=== PATIENT | male | born 1930 | race African-American/Black ===

== ENCOUNTER 2016-11-08 02:44 | Inpatient (IN) | payer MEDICARE, OTHER ==
[2016-11-08] VITALS (45 sets, daily range): BP systolic 55–225; BP diastolic 11–73
[~2016-11-08] VITALS: Ht 182.9 cm; Wt 44.5 kg
[~2016-11-08 02:44] MED LIST: CEFTIN500 MG ORAL; ENALAPRIL MALEA20 MG ORAL; LEVITRA10 MG ORAL; METFORMIN HCL500 M1 ORAL; NAPROXEN500 M2 ORAL; NIFEDIPINE ER60 M2 ORAL; TAMSULOSIN HCL0.4 MG ORAL; TRIAMTERENE-HC1 EAC7 ORAL; UNOBMED; VESICARE5 MG ORAL
[2016-11-08 03:22] LABS: KETONES,URINE NEGATIVE (NEGATIVE); LEUKOCYTE ESTERASE ,URINE 3+ (NEGATIVE); MEAN CORPUSCULAR HEMOGLOBIN 25.7 PG (27.0-31.0); MEAN CORPUSCULAR HGB CONC 29.5 G/DL (32.0-36.0); MEAN CORPUSCULAR VOLUME 87 FL (80-99); MEAN PLATELET VOLUME 9.2 FL (6.5-10.1); NITRITE,URINE NEGATIVE (NEGATIVE); PH,URINE 5 (4.5-8.0); PLATELET COUNT 80 K/UL (150-450); PROTEIN,URINE 2+ (NEGATIVE); RED BLOOD COUNT 3.38 M/UL (4.70-6.10); RED CELL DISTRIBUTION WIDTH 19.6 % (11.6-14.8); UROBILINOGEN,URINE NORMAL MG/DL (0.0-1.0)
[2016-11-08 03:33] LABS: APPEARANCE,URINE CLOUDY; RBC,URINE 20-30 /HPF (0 - 0); WBC,URINE TNTC /HPF (0 - 0)
[2016-11-08 03:34] LABS: BACTERIA,URINE MANY /HPF
[2016-11-08 03:40] LABS: ALANINE AMINOTRANSFERASE 29 U/L (3-41); ALBUMIN/GLOBULIN RATIO 0.6 (1.0-2.7); ANION GAP 39 (5-15); ASPARTATE AMINO TRANSFERASE 39 U/L (5-40); CALCIUM 8.2 mg/dL (8.6-10.2); CHLORIDE 87 mEQ/L (98-107); CREATININE 6.1 mg/dL (0.7-1.2); HEMOLYSIS 11; SODIUM 134 mEQ/L (135-145); TOTAL PROTEIN 5.7 g/dL (6.6-8.7)
[2016-11-08 03:43] LABS: TROPONIN I < 0.30 ng/mL (<=0.30)
[2016-11-08 03:47] LABS: CARBON DIOXIDE 8 mEQ/L (20-30); POTASSIUM 6.9 mEQ/L (3.4-4.9)
[2016-11-08 03:51] LABS: CKMB 9.6 ng/mL (< 6.7)
[2016-11-08 03:57] LABS: REFLEX LACTIC ACID YES OR NO YES
[2016-11-08 04:15] LABS: ABG ALLEN TEST POSITIVE; ABG BASE EXCESS -28.9; ABG PCO2 47.8 mmHg (35.0-45.0)
[2016-11-08 04:24] LABS: BAND NEUTROPHILS % (MANUAL) 7 % (0-8); BASOPHILS % (MANUAL) 0 % (0-2); EOSINOPHILS % (MANUAL) 0 % (0-3); LYMPHOCYTES % (MANUAL) 11 % (20-45); NEUTROPHILS % (MANUAL) 75 % (45-75); PLATELET ESTIMATE DECREASED; PLATELET MORPHOLOGY NORMAL; TOTAL CELLS COUNTED 100
[2016-11-08] MEDS ORDERED: Azithromycin 250mg tab ORAL ONE (04:30)
[2016-11-08] MEDS ORDERED: Calcium Gluconate 1gm/10ml vial IVP ONE ×2 (04:30→10:45)
[2016-11-08] MEDS ORDERED: Piperacillin/Tazobactam 3.375 GM in NS 110 ML IVPB ONE (04:30)
[2016-11-08] MEDS ORDERED: Zosyn 3.375gm inj ONE (04:48)
[2016-11-08] MEDS ORDERED: Azithromycin 500 MG in NS 275 ML IV ONE (05:15)
[2016-11-08] MEDS ORDERED: Azithromycin 500mg Inj IV ONE (05:17)
--- NOTE | 2016-11-08 05:40 | Emergency Room Report ---
History of Present Illness General Chief Complaint: Dyspnea/Respdistress Source: Medical Record Present Illness HPI 86-year-old male presents ED respiratory distress. Patient is coming from shelter with symptoms started approximately one hour prior to arrival. Patient is hypoxic, altered. Crackles on exam. Per EMS Accu-Chek is critically low. Patient on BiPAP upon arrival. Patient is unable to provide any history at this time. Accu-Chek upon arrival is also critically low. No other aggravating relieving factors. No other associated symptoms Allergies: Coded Allergies: No Known Allergies (Unverified , 07/26/13) Patient History Past Medical History: DM, HTN Past Surgical History: none Pertinent Family History: none Social History: Denies: smoking, alcohol use, drug use Immunizations: UTD Reviewed Nursing Documentation: PMH: Agreed, PSxH: Agreed Nursing Documentation-PMH Hx Cardiac Problems: Yes Hx Hypertension: Yes Hx Diabetes: Yes Hx Cancer: No Hx Gastrointestinal Problems: Yes Hx Neurological Problems: No Review of Systems All Other Systems: limited Physical Exam Vital Signs Date Time Temp Pulse Resp B/P (MAP) Pulse Ox O2 Delivery O2 Flow Rate FiO2 11/08/16 02:45 107 26 Bi-pap 11/08/16 02:45 97.0 90/47 80 11/08/16 02:48 100 Sp02 EP Interpretation: reviewed, abnormal General Appearance: lethargic, thin Head: normocephalic Eyes: bilateral eye normal inspection, bilateral eye PERRL ENT: normal ENT inspection Neck: normal inspection Respiratory: accessory muscle use, crackles Cardiovascular #1: tachycardia Gastrointestinal: normal inspection Rectal: deferred Genitourinary: no CVA tenderness Musculoskeletal: normal inspection Neurologic: other - lethargic Psychiatric: other - lethargic Skin: normal inspection Lymphatic: normal inspection Procedures Critical Care Time Critical Care Time i. I feel this is a highly complex case requiring extensive working including EKG/Rhythm strip, Xray/CT/US, Blood/urine lab work, repeat exams while in ED, and administration of strong opiates/narcotics for pain control, admission to hospital or close patient follow up. Total time: 30 min bedside evaluation and treatment excludes procedures (EKG). Reason for critical care: hypoxic, respiratory distress, hypoglycemic Possible complications: hypotension, hypertension, IA, shock, arrhythmias, metabolic acidosis, end organ damage, respiratory failure. Interventions: IVFs, labs, EKG, CXR, D50, intubation, central line, calcium/ insulin/D50, antibiotics Course: Patient brought in respiratory distress. Patient hypoxic on BiPAP. Accu-Chek critically low. Difficulty establishing IV access. Patient given D50. ABG shows pH of 6.8. Patient intubated. Chest x-ray confirms ET tube placement. Central line placed. Labs showed significant leukocytosis, lactic acid greater than 17, pH 6.9. Patient given antibiotics. Given IV fluids. Treated for hyperkalemia. Consultations: nursing staff, EMS, family Performed by: Dr Marroquin Tolerated well condition = critical j. because of unstable vital signs this patient had a condition that could potentially threaten life or limb. I feel this is a critical patient who required my full attention while patient was considered critical. Total Critical Care Time excluding procedures was greater than 35 minutes Central Line Central Line : Consent: Emergent Central Line Lumen: triple Maximal Sterile Barrier Tech: yes cap, yes mask, yes sterile gown, yes sterile gloves, yes large sterile sheet, yes hand hygiene, yes chlorhexidine prep Central Line Postion: femoral (R) Anesthesia: local Complications: none Central Line Post Position: sutured, good blood return Attempts: One Patient Tolerated: Well Complications: None Medical Decision Making Diagnostic Impression: Primary Impression: Respiratory distress Additional Impressions: Septic shock Hyperkalemia ARF (acute renal failure) Qualified Codes: N17.9 - Acute kidney failure, unspecified Metabolic acidosis UTI (lower urinary tract infection) ER Course Hospital Course 86-year-old M presenting to ED with respiratory distress, hypoxic, altered Differential diagnoses include: Pneumonia, CHF exacerbation, pneumothorax, fluid overload Clinical course Patient placed on stretcher. 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 Patient started on BiPAP. Accu-Chek critically low. IV access was established and D50 was given After initial history and physical, I ordered labs, IV fluids, EKG, chest x-ray , blood cultures, UA. ABG shows pH of 6.8 with significant metabolic acidosis. Patient intubated Labs - significant leukocytosis, BUN/creatinine markedly elevated, potassium 6.9 , likely gastric greater than 17, BNP elevated. UA grossly positive CXR - L lung consolidation/infiltrate, intubated EKG - sinus tachycardia, no acute ischemic changes Patient given calcium, insulin/D50. Given 30 mL per KG fluid bolus. Given antibiotics. Patient is a [facility] patient however is critical and unstable for transfer Case discussed with Dr. Pittman and he agreed to the patient to his service for further care and support I feel this is a highly complex case requiring extensive working including EKG/ Rhythm strip, Xray/CT/US, Blood/urine lab work, repeat exams while in ED, and administration of strong opiates/narcotics for pain control, admission to hospital or close patient follow up. Diagnosis - respiratory distress, second shock, hyperkalemia, ARF, metabolic acidosis, UTI Patient admitted to ICU in critical condition Labs Test 11/08/16 03:15 11/08/16 04:10 11/08/16 04:30 White Blood Count 22.0 K/UL (4.8-10.8) Red Blood Count 3.38 M/UL (4.70-6.10) Hemoglobin 8.7 G/DL (14.2-18.0) Hematocrit 29.5 % (42.0-52.0) Mean Corpuscular Volume 87 FL (80-99) Mean Corpuscular Hemoglobin 25.7 PG (27.0-31.0) Mean Corpuscular Hemoglobin Concent 29.5 G/DL (32.0-36.0) Red Cell Distribution Width 19.6 % (11.6-14.8) Platelet Count 80 K/UL (150-450) Mean Platelet Volume 9.2 FL (6.5-10.1) Neutrophils (%) (Auto) % (45.0-75.0) Lymphocytes (%) (Auto) % (20.0-45.0) Monocytes (%) (Auto) % (1.0-10.0) Eosinophils (%) (Auto) % (0.0-3.0) Basophils (%) (Auto) % (0.0-2.0) Differential Total Cells Counted 100 Neutrophils % (Manual) 75 % (45-75) Lymphocytes % (Manual) 11 % (20-45) Monocytes % (Manual) 7 % (1-10) Eosinophils % (Manual) 0 % (0-3) Basophils % (Manual) 0 % (0-2) Band Neutrophils 7 % (0-8) Platelet Estimate Decreased Platelet Morphology Normal Red Blood Cell Morphology Normal Urine Color Pale yellow Urine Appearance Cloudy Urine pH 5 (4.5-8.0) Urine Specific [employer] 1.010 (1.005-1.035) Urine Protein 2+ (NEGATIVE) Urine Glucose (UA) Negative (NEGATIVE) Urine Ketones Negative (NEGATIVE) Urine Occult Blood 5+ (NEGATIVE) Urine Nitrite Negative (NEGATIVE) Urine Bilirubin Negative (NEGATIVE) Urine Urobilinogen Normal MG/DL (0.0-1.0) Urine Leukocyte Esterase 3+ (NEGATIVE) Urine RBC 20-30 /HPF (0 - 0) Urine WBC Tntc /HPF (0 - 0) Urine Squamous Epithelial Cells None /LPF (NONE/OCC) Urine Bacteria Many /HPF (NONE) Sodium Level 134 mEQ/L (135-145) Potassium Level 6.9 mEQ/L (3.4-4.9) Chloride Level 87 mEQ/L (98-107) Carbon Dioxide Level 8 mEQ/L (20-30) Anion Gap 39 (5-15) Blood Urea Nitrogen 79 mg/dL (7-23) Creatinine 6.1 mg/dL (0.7-1.2) Estimat Glomerular Filtration Rate mL/min (>60) Glucose Level 910 mg/dL (74-106) Lactic Acid Level 17.30 mmol/L (0.66-2.22) 17.80 mmol/L (0.66-2.22) Calcium Level 8.2 mg/dL (8.6-10.2) Total Bilirubin 0.6 mg/dL (0.0-1.2) Aspartate Amino Transf (AST/SGOT) 39 U/L (5-40) Alanine Aminotransferase (ALT/SGPT) 29 U/L (3-41) Alkaline Phosphatase 121 U/L (40-129) Total Creatine Kinase 420 U/L (38-174) Creatine Kinase MB 9.6 ng/mL (< 6.7) Creatine Kinase MB Relative Index 2.2 Troponin I < 0.30 ng/mL (<=0.30) Pro-B-Type Natriuretic Peptide 08952 pg/mL (0-450) Total Protein 5.7 g/dL (6.6-8.7) Albumin 2.2 g/dL (3.5-5.2) Globulin 3.5 g/dL Albumin/Globulin Ratio 0.6 (1.0-2.7) Arterial Blood pH 6.721 (7.350-7.450) Arterial Blood Partial Pressure CO2 47.8 mmHg (35.0-45.0) Arterial Blood Partial Pressure O2 100.3 mmHg (75.0-100.0) Arterial Blood HCO3 6.1 mmol/L (22.0-26.0) Arterial Blood Oxygen Saturation 87.9 % (92.0-98.0) Arterial Blood Base Excess -28.9 Simone Test Positive EKG Diagnostic Results Rate: tachycardiac Rhythm: NSR ST Segments: no acute changes ASA given to the pt in ED: No Rhythm Strip Diag. Results EP Interpretation: yes Rhythm: NSR, no PVC's, no ectopy Chest X-Ray Diagnostic Results Chest X-Ray Diagnostic Results : Chest X-Ray Ordered: Yes # of Views/Limited/Complete: 1 View Indication: Shortness of Breath EP Interpretation: Yes Interpretation: no effusion, no pneumothorax, no acute cardiopulmonary disease, other - intubated. L lung consolidation Impression: Other - pneumonia, intubated Last Vital Signs Date Time Temp Pulse Resp B/P (MAP) Pulse Ox O2 Delivery O2 Flow Rate FiO2 11/08/16 05:29 78 16 80 11/08/16 02:48 99 Facial 11/08/16 02:45 97.0 90/47 Status: improved Disposition: ADMITTED INPATIENT Condition: Critical Referrals: [facility] (PCP) WANG MARROQUIN M.D. Nov 08, 2016 05:40
[2016-11-08] MEDS ORDERED: DOCUSATE SODIU250 MG ORAL (06:19)
[2016-11-08] MEDS ORDERED: PROSCAR5 MG ORAL (06:19)
[2016-11-08] MEDS ORDERED: LISINOPRIL5 MG ORAL (06:19)
[2016-11-08] MEDS ORDERED: DULCOLAX10 MG RC (06:19)
[2016-11-08] MEDS ORDERED: FOLIC ACID1 MG ORAL (06:19)
[2016-11-08] MEDS ORDERED: MINERAL OIL EN133 ML RC (06:35)
[2016-11-08] MEDS ORDERED: NAPROXEN375 M2 ORAL (06:35)
[2016-11-08] MEDS ORDERED: METHOTREXATE2.5 MG PO (06:35)
[2016-11-08] MEDS ORDERED: MAXZIDE 37.5 M1 EAC1 PO (06:35)
[2016-11-08] MEDS ORDERED: SENNA8.6 M2 PO (06:35)
[2016-11-08] MEDS ORDERED: NORVASC10 MG ORAL (06:35)
[2016-11-08 07:33] LABS: ABG PCO2 44.7 mmHg (35.0-45.0)
[2016-11-08 07:34] LABS: ABG ALLEN TEST POSITIVE; ABG BASE EXCESS -29.4
[2016-11-08] MEDS ORDERED: LORazepam Inj 2mg/ml 1ml IV PRN (07:45)
[2016-11-08] MEDS ORDERED: Miralax 17gm pkt ORAL PRN (07:45)
[2016-11-08] MEDS ORDERED: Albuterol/Ipratropium 3ml neb HHN PRN ×2 (07:45)
[2016-11-08] MEDS ORDERED: Morphine Sulfate 4mg/ml Inj IVP PRN (07:45)
[2016-11-08] MEDS ORDERED: Sodium Bicarbonate 50ml Carp IV ONE (08:15)
[2016-11-08] MEDS ORDERED: Sodium Bicarbonate 100 ML in NS 1000ml 1,000 ML IV SCH (08:15)
[2016-11-08] MEDS ORDERED: D5W 275 ML ONE (08:39)
[2016-11-08] MEDS ORDERED: Tubing IV Cassette IV ONE (08:39)
[2016-11-08] MEDS ORDERED: Levophed 4mg/4mL Inj IV ONE (08:39)
--- NOTE | 2016-11-08 08:56 | Diagnostic Imaging Report ---
Indication: Status post intubation Comparison: None Findings: Single view the chest is obtained. Evaluation is somewhat limited by rotation to the left. Heart size is normal.. Pulmonary vasculature is normal. There is suggestion of left lower lobe airspace disease/atelectasis. Right lung is clear. No pneumothorax. Endotracheal tube is noted and is in good position terminating approximately 2.5 cm above the shiraz. Aortic calcifications are seen. No acute osseous abnormalities. Impression: Endotracheal tube in good position terminating approximately 2.5 cm above the shiraz. Left lower lobe airspace disease/atelectasis suspected.
[2016-11-08] MEDS ORDERED: Tamsulosin 0.4mg cap ORAL SCH (09:00)
[2016-11-08] MEDS ORDERED: Heparin 5000 units/ml inj SUBQ SCH (09:00)
[2016-11-08] MEDS ORDERED: Ertapenem 0.5 GM in NS 55 ML IV SCH (10:00)
[2016-11-08] MEDS ORDERED: Amikacin Rx to dose MISC PRN (10:30)
--- NOTE | 2016-11-08 10:45 | Pulmonolgy Critical Care Note ---
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 - Objective Last 24 Hour Vital Signs Date Time Temp Pulse Resp B/P (MAP) Pulse Ox O2 Delivery O2 Flow Rate FiO2 11/08/16 09:25 89 16 113/45 100 Mechanical Ventilator 80 11/08/16 09:25 113/45 11/08/16 09:25 113/45 11/08/16 09:25 113/45 11/08/16 09:20 88 16 85/44 100 Mechanical Ventilator 80 11/08/16 09:20 85/44 11/08/16 09:20 85/44 11/08/16 09:20 85/44 11/08/16 09:20 85/44 11/08/16 09:15 90 16 85/40 100 Mechanical Ventilator 80 11/08/16 09:15 86 16 80 11/08/16 09:15 85/40 11/08/16 09:15 85/40 11/08/16 09:15 85/40 11/08/16 09:15 85/40 11/08/16 09:10 95 16 81/42 100 Mechanical Ventilator 80 11/08/16 09:10 81/42 11/08/16 09:05 94 16 79/41 100 Mechanical Ventilator 80 11/08/16 09:05 79/41 11/08/16 09:00 74/36 11/08/16 09:00 94 16 74/36 100 Mechanical Ventilator 80 11/08/16 08:50 71/36 11/08/16 08:50 94 16 71/36 100 Mechanical Ventilator 80 11/08/16 08:45 94 16 67/36 100 Mechanical Ventilator 80 11/08/16 08:45 67/36 11/08/16 08:40 71 16 67/37 100 Mechanical Ventilator 80 11/08/16 08:30 94 16 56/36 100 Mechanical Ventilator 80 11/08/16 07:53 91.4 94 16 75/46 100 Mechanical Ventilator 80 11/08/16 07:20 82 16 80 11/08/16 07:20 82 16 Mechanical Ventilator 80 11/08/16 05:45 97.0 75 16 127/56 100 Mechanical Ventilator 80 11/08/16 05:29 78 16 80 11/08/16 04:45 96.9 80 18 118/53 100 Mechanical Ventilator 80 11/08/16 04:38 80 11/08/16 04:10 86 16 80 11/08/16 03:45 97.1 89 19 153/60 100 Mechanical Ventilator 80 11/08/16 03:33 112 16 60 11/08/16 02:48 134 34 99 Facial 100 11/08/16 02:48 134 34 Bi-pap 100 11/08/16 02:45 97.0 107 26 90/47 80 11/08/16 02:45 97.0 102 26 90/47 80 Bi-pap 11/08/16 02:45 107 26 Bi-pap Status: awake Condition: critical HEENT: atraumatic Neck: full ROM Lungs: chest wall tender Heart: HR/BP stable, HR/BP unstable Abdomen: non-tender, active bowel sounds, feeding tube Extremities: edema Decubiti: location Accucheck: 189 Critical Care - Subjective ROS Limited/Unobtainable: Yes ICU Day: 1 Intubation Day: 1 Interval Events: 86-year-old male from a senior care presented to ED respiratory distress. Patient is hypoxic, altered and hypotensive . Per EMS Accu-Chek is critically low. Patient on BiPAP upon arrival. Patient was unable to provide any history at this time. Pt was intubated in ER and was started on Levophed and transferred to ICU FI02: 80 Vent Support Breath Rate: 16 Vent Support Mode: AC Vent Tidal Volume: 500 Sputum Amount: Small PEEP: 5.0 PIP: 22 Fluids: NS 200 cc/hour Drips: Levophed I&O: Intake and Output 11/08/16 11/09/16 19:00 07:00 Intake Total 1000 ml Output Total 800 ml Balance 200 ml Intake IV Total 1000 ml Output Urine Total 800 ml # Bowel Movements 1 CXR: ET in good position ET-Tube: 7.5 ET Position: 21 Labs: Laboratory Tests Test 11/08/16 03:15 11/08/16 04:10 11/08/16 04:30 11/08/16 07:25 White Blood Count 22.0 K/UL (4.8-10.8) H Red Blood Count 3.38 M/UL (4.70-6.10) L Hemoglobin 8.7 G/DL (14.2-18.0) L Hematocrit 29.5 % (42.0-52.0) L Mean Corpuscular Volume 87 FL (80-99) Mean Corpuscular Hemoglobin 25.7 PG (27.0-31.0) L Mean Corpuscular Hemoglobin Concent 29.5 G/DL (32.0-36.0) L Red Cell Distribution Width 19.6 % (11.6-14.8) H Platelet Count 80 K/UL (150-450) L Mean Platelet Volume 9.2 FL (6.5-10.1) Neutrophils (%) (Auto) % (45.0-75.0) Lymphocytes (%) (Auto) % (20.0-45.0) Monocytes (%) (Auto) % (1.0-10.0) Eosinophils (%) (Auto) % (0.0-3.0) Basophils (%) (Auto) % (0.0-2.0) Differential Total Cells Counted 100 Neutrophils % (Manual) 75 % (45-75) Lymphocytes % (Manual) 11 % (20-45) L Monocytes % (Manual) 7 % (1-10) Eosinophils % (Manual) 0 % (0-3) Basophils % (Manual) 0 % (0-2) Band Neutrophils 7 % (0-8) Platelet Estimate Decreased L Platelet Morphology Normal Red Blood Cell Morphology Normal Urine Color Pale yellow Urine Appearance Cloudy Urine pH 5 (4.5-8.0) Urine Specific [place] 1.010 (1.005-1.035) Urine Protein 2+ (NEGATIVE) H Urine Glucose (UA) Negative (NEGATIVE) Urine Ketones Negative (NEGATIVE) Urine Occult Blood 5+ (NEGATIVE) H Urine Nitrite Negative (NEGATIVE) Urine Bilirubin Negative (NEGATIVE) Urine Urobilinogen Normal MG/DL (0.0-1.0) Urine Leukocyte Esterase 3+ (NEGATIVE) H Urine RBC 20-30 /HPF (0 - 0) H Urine WBC Tntc /HPF (0 - 0) H Urine Squamous Epithelial Cells None /LPF (NONE/OCC) Urine Bacteria Many /HPF (NONE) H Sodium Level 134 mEQ/L (135-145) L Potassium Level 6.9 mEQ/L (3.4-4.9) *H Chloride Level 87 mEQ/L (98-107) L Carbon Dioxide Level 8 mEQ/L (20-30) *L Anion Gap 39 (5-15) H Blood Urea Nitrogen 79 mg/dL (7-23) H Creatinine 6.1 mg/dL (0.7-1.2) H Estimat Glomerular Filtration Rate mL/min (>60) Glucose Level 910 mg/dL (74-106) *H Lactic Acid Level 17.30 mmol/L (0.66-2.22) H 17.80 mmol/L (0.66-2.22) H Calcium Level 8.2 mg/dL (8.6-10.2) L Total Bilirubin 0.6 mg/dL (0.0-1.2) Aspartate Amino Transf (AST/SGOT) 39 U/L (5-40) Alanine Aminotransferase (ALT/SGPT) 29 U/L (3-41) Alkaline Phosphatase 121 U/L (40-129) Total Creatine Kinase 420 U/L (38-174) H Creatine Kinase MB 9.6 ng/mL (< 6.7) H Creatine Kinase MB Relative Index 2.2 Troponin I < 0.30 ng/mL (<=0.30) Pro-B-Type Natriuretic Peptide 74090 pg/mL (0-450) H Total Protein 5.7 g/dL (6.6-8.7) L Albumin 2.2 g/dL (3.5-5.2) L Globulin 3.5 g/dL Albumin/Globulin Ratio 0.6 (1.0-2.7) L Arterial Blood pH 6.721 (7.350-7.450) 6.706 (7.350-7.450) Arterial Blood Partial Pressure CO2 47.8 mmHg (35.0-45.0) H 44.7 mmHg (35.0-45.0) Arterial Blood Partial Pressure O2 100.3 mmHg (75.0-100.0) H 227.3 mmHg (75.0-100.0) H Arterial Blood HCO3 6.1 mmol/L (22.0-26.0) L 5.5 mmol/L (22.0-26.0) L Arterial Blood Oxygen Saturation 87.9 % (92.0-98.0) L 98.2 % (92.0-98.0) H Arterial Blood Base Excess -28.9 -29.4 Simone Test Positive Positive ES TUCKER Nov 08, 2016 10:45
[2016-11-08] MEDS ORDERED: Amikacin 400 MG in NS 110 ML IV SCH (11:00)
[2016-11-08] MEDS ORDERED: Vancomycin 1 GM in D5W 275 ML IVPB ONE (11:00)
[2016-11-08] MEDS ORDERED: Sodium Polystyrene Sulfonate 15gm Powder ORAL ONE (11:00)
[2016-11-08 12:39] LABS: ALANINE AMINOTRANSFERASE 334 U/L (3-41); ALBUMIN/GLOBULIN RATIO 0.6 (1.0-2.7); ASPARTATE AMINO TRANSFERASE 692 U/L (5-40); CALCIUM 6.5 mg/dL (8.6-10.2); CHLORIDE 107 mEQ/L (98-107); CREATININE 5.5 mg/dL (0.7-1.2); HEMOLYSIS 4; SODIUM 146 mEQ/L (135-145); TOTAL PROTEIN 3.7 g/dL (6.6-8.7)
[2016-11-08 12:40] LABS: URIC ACID 10.9 mg/dL (3.0-7.5)
[2016-11-08 12:42] LABS: REFLEX LACTIC ACID YES OR NO YES
[2016-11-08 12:46] LABS: ANION GAP 33 (5-15)
[2016-11-08] MEDS: NovoLOG Insulin Flexpen SUBQ SCH ×2 (12:47→16:43)
[2016-11-08 12:50] LABS: CARBON DIOXIDE 6 mEQ/L (20-30); POTASSIUM 6.3 mEQ/L (3.4-4.9)
[2016-11-08 13:05] LABS: BILIRUBIN,DIRECT 0.9 mg/dL (0.1-0.3)
--- NOTE | 2016-11-08 13:44 | History & Physical ---
History and Physical History & Physicial Dictated for Int Med-Dr Pittman no. [id number] ICU. LEN [place]NA[place] Nov 08, 2016 13:44
[2016-11-08 15:55] LABS: APPEARANCE,URINE TURBID; KETONES,URINE NEGATIVE (NEGATIVE); LEUKOCYTE ESTERASE ,URINE 3+ (NEGATIVE); NITRITE,URINE NEGATIVE (NEGATIVE); PH,URINE 7 (4.5-8.0); PROTEIN,URINE 3+ (NEGATIVE); UROBILINOGEN,URINE NORMAL MG/DL (0.0-1.0)
[2016-11-08 16:15] LABS: AMORPHOUS SEDIMENT,UR MODERATE /LPF; BACTERIA,URINE MANY /HPF; RBC,URINE 15-20 /HPF (0 - 0); SQUAMOUS EPITHELIAL CELL,UR FEW /LPF (NONE/OCC); WBC,URINE TNTC /HPF (0 - 0)
[2016-11-08 16:26] LABS: CALCIUM 6.7 mg/dL (8.6-10.2); CHLORIDE 108 mEQ/L (98-107); CREATININE 5.4 mg/dL (0.7-1.2); HEMOLYSIS 4; SODIUM 147 mEQ/L (135-145)
[2016-11-08 17:14] LABS: POTASSIUM 7.6 mEQ/L (3.4-4.9)
[2016-11-08 17:15] LABS: ANION GAP 34 (5-15); CARBON DIOXIDE 5 mEQ/L (20-30)
[2016-11-08 17:19] LABS: ABG ALLEN TEST POSITIVE; ABG BASE EXCESS -25.7; ABG PCO2 45.8 mmHg (35.0-45.0)
--- NOTE | 2016-11-08 17:23 | Emergency Room Report ---
History of Present Illness General Chief Complaint: Dyspnea/Respdistress Source: Medical Record Present Illness Allergies: Coded Allergies: No Known Allergies (Unverified , 07/26/13) Nursing Documentation-[facility] Past Medical History Deferred: Patient Unconscious Hx Cardiac Problems: Yes Hx Hypertension: Yes Hx Diabetes: Yes Hx Cancer: No Hx Gastrointestinal Problems: Yes Hx Neurological Problems: No Physical Exam Vital Signs Date Time Temp Pulse Resp B/P (MAP) Pulse Ox O2 Delivery O2 Flow Rate FiO2 11/08/16 02:45 107 26 Bi-pap 11/08/16 02:45 97.0 90/47 80 11/08/16 02:48 100 Procedures CPR/Code Blue CPR/Code Blue Narrative 78-year-old male with respiratory distress already Intubated, with R femoral central line I got called for CODE BLUE in ICU Ongoing compressions for about 2 minutes Initial rhythm was asystole Patient received epi x 3 1 amp calcium gluconate 1 amp of bicarb Rosc achieved after 7 minutes Sinus tachycardia Medical Decision Making Diagnostic Impression: Primary Impression: Respiratory distress Additional Impressions: ARF (acute renal failure) Qualified Codes: N17.9 - Acute kidney failure, unspecified UTI (lower urinary tract infection) Septic shock Metabolic acidosis Hyperkalemia Last Vital Signs Date Time Temp Pulse Resp B/P (MAP) Pulse Ox O2 Delivery O2 Flow Rate FiO2 11/08/16 16:30 72 20 86/35 95 Mechanical Ventilator 100 11/08/16 16:00 96.2 Disposition: ADMITTED INPATIENT Condition: Critical Referrals: [facility] (PCP) Carol Ann Mcclellan M.D. Nov 08, 2016 17:23
[2016-11-08 17:57] LABS: TROPONIN I < 0.30 ng/mL (<=0.30)
[2016-11-08 18:01] LABS: ALANINE AMINOTRANSFERASE 472 U/L (3-41); ALBUMIN/GLOBULIN RATIO 0.5 (1.0-2.7); CALCIUM 8.6 mg/dL (8.6-10.2); CHLORIDE 108 mEQ/L (98-107); CREATININE 5.2 mg/dL (0.7-1.2); HEMOLYSIS 10; MAGNESIUM 2.2 mg/dL (1.7-2.5); PHOSPHORUS 13.8 mg/dL (2.5-4.8); SODIUM 146 mEQ/L (135-145); TOTAL PROTEIN 2.9 g/dL (6.6-8.7)
[2016-11-08 18:06] LABS: ANION GAP 30 (5-15)
[2016-11-08 18:09] LABS: CARBON DIOXIDE 8 mEQ/L (20-30); POTASSIUM 8.2 mEQ/L (3.4-4.9)
[2016-11-08 18:11] LABS: ASPARTATE AMINO TRANSFERASE 1233 U/L (5-40)
[2016-11-08 18:15] LABS: REFLEX LACTIC ACID YES OR NO YES
[2016-11-08 18:19] LABS: MEAN CORPUSCULAR HGB CONC 29.5 G/DL (32.0-36.0); MEAN CORPUSCULAR VOLUME 88 FL (80-99); MEAN PLATELET VOLUME 8.4 FL (6.5-10.1); PLATELET COUNT 19 K/UL (150-450); RED BLOOD COUNT 2.48 M/UL (4.70-6.10); RED CELL DISTRIBUTION WIDTH 19.2 % (11.6-14.8); WHITE BLOOD COUNT 5.9 K/UL (4.8-10.8)
--- NOTE | 2016-11-08 19:44 | Consultation ---
Consult Note Consult Note Cardiac EP/ Cardiology for Dr. Ward #[id number] BENJAMIN OLMOS Nov 08, 2016 19:44
[2016-11-08 20:02] LABS: BAND NEUTROPHILS % (MANUAL) 7 % (0-8); NEUTROPHILS % (MANUAL) 50 % (45-75); TOTAL CELLS COUNTED 100
[2016-11-08 20:03] LABS: ANISOCYTOSIS 3+; BASOPHILS % (MANUAL) 0 % (0-2); EOSINOPHILS % (MANUAL) 0 % (0-3); HYPOCHROMASIA 3+; LYMPHOCYTES % (MANUAL) 33 % (20-45); PLATELET ESTIMATE DECREASED; PLATELET MORPHOLOGY NORMAL
--- NOTE | 2016-11-08 21:00 | History and Physical Report ---
DATE OF ADMISSION: 11/08/2016 NOTE: INCOMPLETE DICTATION Chief Complaint: The patient is an 86-year-old male, who presents with a chief complaint of respiratory distress. History Of Present Illness: The patient is a resident of [facility]. According to staff at [facility], the patient became short of breath approximately one hour prior to arrival. The patient was found to have critically low blood sugar in the field. The patient was placed on BiPAP. The patient was evaluated in [place] emergency room. The patient was admitted for acute respiratory failure. The patient is currently intubated in the intensive care unit. Review Of Systems: Unable to assess secondary to the patient's mental status and intubation. PAST MEDICAL HISTORY: Significant for, 1. Hypertension. 2. Diabetes. 3. Coronary artery disease. 4. Benign prostatic hypertrophy. PAST SURGICAL HISTORY: Unknown. CURRENT MEDICATIONS: From [facility], 1. Diclofenac gel apply to left knee twice daily. 2. Finasteride 5 mg one tablet p.o. daily. 3. Folic acid 1000 mcg p.o. daily. 4. Regular insulin sliding scale. 5. Lisinopril 5 mg one tablet p.o. daily. 6. Maxzide 25/37.5 mg one tablet p.o. daily. 7. Metformin 500 mg one tablet p.o. twice daily. 8. Methotrexate 5 mg p.o. every Wednesday. 9. Naprosyn 375 mg one tab p.o. p.r.n. knee pain. 10. Norvasc 10 mg one tablet p.o. daily. Mehul Wolf M.D. DR: GIOVANY JOB#: [id number] CC:
[2016-11-08] MEDS ORDERED: Tubing IV Secondary IV ONE ×2 (22:25)
[2016-11-08] MEDS ORDERED: NS 275ml ONE (22:25)
[2016-11-08] MEDS ORDERED: Sterile Water Irrig 1000ml IRRIG ONE (22:25)
[2016-11-08] MEDS ORDERED: NS 550ML IV ONE (22:25)
--- NOTE | 2016-11-08 23:30 | Consultation ---
DATE OF CONSULTATION: 11/08/2016 CARDIOLOGY CONSULTATION CONSULTING PHYSICIAN: Melani Hollingsworth M.D. REQUESTING PHYSICIAN: Ramirez Pittman M.D. REASON FOR CONSULT: Status post cardiopulmonary arrest. History Of Present Illness: The patient is an 86-year-old man with history of recent urinary tract infection treated at [facility], who was transferred from the convalescent facility with weakness and altered mental status. He was intubated in the emergency room. He was noted to be severely acidotic, in renal failure, and hyperkalemic. In the intensive care unit, he suffered PEA cardiac arrest and was resuscitated with atropine, epinephrine, and CPR. He was placed on intravenous Levophed currently at 25 mcg/kg/min. He had another bradycardic cardiac arrest, bradycardia to asystole, and was again resuscitated with epinephrine, bicarbonate, calcium, D50, and insulin. He is currently on the ventilator on pressors. PAST MEDICAL HISTORY: As noted above. Medications: Insulin, amikacin, norepinephrine, ertapenem, Flomax, subcutaneous heparin, and intravenous vancomycin. ALLERGIES: No known drug allergies. PHYSICAL EXAMINATION: GENERAL: Intubated, unresponsive male. Vital Signs: Blood pressure is 150/47, pulse 85 and regular, respirations 20, and temperature 96.2 degrees. HEENT: Pupils equal, round, and reactive to light. Endotracheal and nasogastric tubes in place. NECK: Supple. No jugular venous distention. LUNGS: Clear anteriorly. HEART: Regular, S1 and S2. No murmurs, rubs, S3, or S4. ABDOMEN: Soft, nondistended. Decreased bowel sounds. EXTREMITIES: No cyanosis, clubbing, or edema. Laboratory Data: Hemoglobin 6.5 and on admission 8.7. White blood count 5900 and on admission . Potassium 8.2, sodium 146, chloride 108, bicarbonate 8, BUN 63, creatinine 5.2, and glucose 399. Troponin less than 0.3. EKG shows sinus tachycardia, first-degree AV block, and left axis deviation. Chest x-ray, left lower airspace disease, atelectasis; right clear. Assessment And Recommendations: The patient is an 86-year-old man, who was admitted with septic shock and has suffered two cardiopulmonary arrests due to pulseless electrical activity. He is on high-dose pressors, intubated on the ventilator, and is being treated for severe hyperkalemia. Overall prognosis appears poor. We will continue current resuscitative measures; however, per family, he is currently Do Not Resuscitate in case of another cardiac arrest. We will continue pressors with titration, intravenous antibiotics for sepsis, and ventilator support. Melani Hollingsworth M.D. DR: MABEL JOB#: [id number] CC:
--- NOTE | 2016-11-09 08:32 | History and Physical Report ---
DATE OF ADMISSION: 11/08/2016 Chief Complaint: The patient is an 86-year-old male, who is admitted with respiratory failure. History Of Present Illness: The patient is a resident of [facility], [place]. According to staff at [facility], the patient became acutely short of breath one hour prior to arrival. The patient was also found to have critical low blood sugar in the field. The patient was placed on BiPAP. Upon arrival at [facility], the patient was in acute respiratory failure. The patient was emergently intubated in the emergency room. The patient is admitted for respiratory failure and hypoglycemia. PAST MEDICAL HISTORY: Significant for, 1. Hypertension. 2. Diabetes type 2. 3. Coronary artery disease. 4. Benign prostatic hypertrophy. PAST SURGICAL HISTORY: Unknown. CURRENT MEDICATIONS: 1. Diclofenac 1% gel applied twice daily to knee. 2. Finasteride 5 mg one tablet p.o. daily. 3. Folic acid 1000 mcg p.o. daily. 4. Lisinopril 5 mg one tablet p.o. daily. 5. Regular insulin sliding scale. 6. Maxzide 37.5/25 one tablet p.o. daily. 7. Metformin 500 mg one tablet p.o. twice daily. 8. Methotrexate 2.5 mg two tablets p.o. every Wednesday. 9. Naprosyn 375 mg one tablet p.o. twice daily p.r.n. 10. Norvasc 10 mg one tablet p.o. daily. ALLERGIES: No known drug allergies. Social History: The patient is a resident of [facility], [place]. Review Of Systems: Unable to assess secondary to the patient's mental status and currently on the ventilator. PHYSICAL EXAMINATION: Vital Signs: Temperature 97.0 degrees, respirations 26, pulse 102 to 107, and blood pressure 90/47. General: The patient is a well-developed and well-nourished male, who is intubated and sedated. HEENT: Eyes, pupils equal and responsive to light and accommodation. Extraocular movements are intact. NECK: Supple without lymphadenopathy. Chest: Coarse breath sounds bilaterally without wheeze or rales. The patient is on a mechanical ventilation. Abdomen: Soft, nontender, and nondistended. Positive bowel sounds. No hepatosplenomegaly. Currently, no rebound or guarding noted. EXTREMITIES: Negative for clubbing, cyanosis, or edema. Laboratory Studies: WBC 22.0, hemoglobin 8.7, hematocrit 29.5, and platelets 80,000. Sodium 134, potassium 6.9, chloride 87, BUN 79, creatinine 6.1, and glucose 03:21. Chest x-ray was reported as left lower lobe atelectasis. ASSESSMENT: This is an 86-year-old male. 1. Respiratory failure. 2. Renal failure. 3. 03:33. 4. Hypertension. 5. Diabetes type 2. 6. Coronary artery disease. 7. Benign prostatic hypertrophy. 8. Hyperkalemia. 9. Leukocytosis. 10. Rheumatoid arthritis. TREATMENT: 1. Respiratory failure. A Pulmonary consultation obtained with Dr. Eugenio Meyer. The patient is currently on a mechanical ventilator. The patient has been started empirically on vancomycin, ertapenem, and amikacin for possible aspiration pneumonia. 2. Renal failure. A Nephrology consultation obtained with Dr. Vega. 3. 04:11. The patient is currently receiving D5W intravenously. 4. Hypertension. The patient is currently hypotensive. 5. Diabetes type 2. Continue NovoLog sliding scale. 6. Coronary artery disease. 7. Benign prostatic hypertrophy. 8. Hyperkalemia probably secondary to acute renal failure. 9. Leukocytosis. 10. History of rheumatoid arthritis. Mehul Wolf M.D. DR: GIOVANY JOB#: [id number] CC:
--- NOTE | 2016-11-09 11:07 | Diagnostic Imaging Report ---
Indication: NG-tube Comparison: None Single view of the abdomen obtained Is findings: Nasogastric tube is in the position. There is a right femoral line present projected over the lower IVC. Mild distended small and large bowel noted. There is a calcification projected over the right lower abdomen. The calcification was noted on previous CT in 2013 resulting in an uncertain etiology. Degenerative changes of the lumbar spine are noted on this study. Impression: NG tube in good position. Other findings as above
--- NOTE | 2016-11-09 12:51 | Discharge Summary ---
Discharge Summary Hospital Course Date of Admission Nov 08, 2016 at 04:18 Date of Discharge Nov 08, 2016 at 22:26 Admitting Diagnosis Respiratory Distress HPI Carlos AugustEdward is a 86 year old male who was admitted on Nov 08, 2016 at 04:18 for Respiratory Distress Hospital Course dc summary #[id number] Discharge Discharge Disposition Patient Discharge Diagnoses: Discharge Instructions Discharge Instructions Special Instructions I have been assigned to complete a D/C Summary on this account. I was not involved in the patient management Gabi Sawant NP (Vanchtein) Nov 09, 2016 12:51
--- NOTE | 2016-11-09 19:15 | Cardiology Report ---
APPROVED REPORT EKG Measurement Heart [id number] Sinus rhythm with 1st degree AV block Left axis deviation Left bundle branch block Abnormal ECG
--- NOTE | 2016-11-10 02:45 | Discharge Summary 2 SIG ---
SUMMARY DATE OF ADMISSION: 11/08/2016 DATE OF EXPIRATION: 11/08/2016. Reason For Admission: 86-year-old male with history of hypertension, diabetes, coronary artery disease, and BPH, [facility] with hypoxia and altered level of consciousness. Accu-Chek was critically low as reported by paramedics. The patient was on the BiPAP upon arrival. The patient was unable to provide any history. Upon arrival, blood pressure - 90/47 and pulse oximetry 80% on 100% of the BiPAP.The patient was required emergent intubation. The patient also required placement of central line and was started on pressors. ABG revealed pH of 6.8 and evidence of significant metabolic acidosis. Laboratory workup revealed leukocytosis, WBC- 22. BUN -79, creatinine -6.1, and potassium -6.9. Lactic acid was 17.3. Pro BNP was significantly elevated. UA was grossly positive for UTI. Chest x-ray revealed left lung consolidation, likely infiltrate. EKG showed sinus tachycardia, but no acute ischemic changes. Sepsis protocol was initiated. The patient was given fluid bolus 30 mL/kg. The patient was started on empiric antibiotics prior to being pancultured. The patient was treated for hyperkalemia with calcium, insulin and dextrose D50. Of note, the patient had a [employer] insurance, however, the patient was critical and was unstable for transfer. The patient was admitted to ICU for further management. ADMITTING DIAGNOSES: 1. Septic shock. 2. Sepsis. 3. Urinary tract infection. 4. Possible pneumonia. 5. Acute respiratory failure, requiring intubation. 6. Metabolic acidosis. 7. Hyperkalemia. 8. Acute renal failure. Hospital Course: The patient was admitted to ICU. Pulmonology and Cardiology consults were requested. The patient was on high dose of pressor for hemodynamic support. Telecommunicator Supervisor closely followed the patient. The patient was started on empiric antibiotics. Ventilator support was provided. Pulmonary toilet was provided as needed. The patient was followed up with ABG and settings were titrated based on results. The patient with evidence of severe metabolic acidosis likely due to acute renal failure and sepsis. The patient was on empiric antibiotics. Urine culture pending. Blood culture preliminary with Gram-negative rods. Leukocytosis resolved with antibiotics The patient was started on the IV fluids with dextrose due to hypoglycemia. The patient was continued to be treated for hyperkalemia, which persisted and actually got worse. The patient was on the IV fluids. Renal parameters and electrolytes were closely monitored. Laboratory work later during the day revealed rapidly increased LFT, likely shock liver. Lactic acid repeated, still with significant elevation-21.1. Potassium -6.3 and repeated-7.6 and then-8.2 Creatinine was small trend down to 5.2. The patient was on high dose of pressors. The patient had a cardiopulmonary arrest, secondary to pulseless electrical activity treated with Atropine, Epinephrine and CPR. Shortly after, the patient suffered from a second cardiopulmonary arrest due to bradycardia , leading to asystole, treated with epinephrine x3, 1 ampule of calcium gluconate, and 1 ampule of bicarbonate. Return of spontaneous circulation was achieved after 7 minutes with sinus tachycardia. After the second arrest, son decided to change the Code status. Later that day , Code status was changed to DNR/DNI. Family was at the bedside and did not want any more resuscitation efforts. Later in the evening, it was noted that heart rate started to drop and the patient went to asystole at 20:19. The patient was pronounced at that time. Cause of cardiopulmonary arrest. FINAL DIAGNOSES: 1. Septic shock. 2. Sepsis with Gram-negative bacteremia. 3. Probable urinary tract infection. 4. Probable pneumonia. 5. Status post cardiopulmonary arrest x2. 6. Pulseless electrical activity. 7. Acute respiratory failure, requiring intubation. 8. Metabolic acidosis, secondary to acute renal failure and sepsis. 9. Acute renal failure. 10. Hyperkalemia, secondary to acute renal failure. 11. Hypoglycemia. 12. History of hypertension with current hypotension. 13. Coronary artery disease. 14. Elevated liver function tests, likely shock liver. Ramirez Pittman M.D. I have been assigned to dictate discharge summary on this account and I was not involved in the patient's management. Gabi Sawant (Vanchtein) N.PUmm DR: RACHEL JOB#: [id number] CC: ROCHELLE
== END 2016-11-08 22:26 | disposition expired | DRG 871 ==
LOC: EDBD 02:44 → EMR 03:12 → EDBEDREQ 03:17 → ICU 04:18 → EDBEDREQ 08:47
PROC: 0BH17EZ Insertion of Endotracheal Airway into Trachea, Via Natural or Artificial Opening (ICD-10-PCS; principal; 2016-11-08)
PROC: 5A12012 Performance of Cardiac Output, Single, Manual (ICD-10-PCS; principal; 2016-11-08)
PROC: 06HM33Z Insertion of Infusion Device into Right Femoral Vein, Percutaneous Approach (ICD-10-PCS; principal; 2016-11-08)
PROC: 5A1935Z Respiratory Ventilation, Less than 24 Consecutive Hours (ICD-10-PCS; principal; 2016-11-08)
DX: A41.50 Gram-negative sepsis, unspecified (principal); R65.21 Severe sepsis with septic shock; J96.01 Acute respiratory failure with hypoxia; I46.9 Cardiac arrest, cause unspecified; K72.00 Acute and subacute hepatic failure without coma; J18.9 Pneumonia, unspecified organism; N39.0 Urinary tract infection, site not specified; N17.9 Acute kidney failure, unspecified; E87.5 Hyperkalemia; I25.10 Atherosclerotic heart disease of native coronary artery without angina pectoris; I10 Essential (primary) hypertension; N40.0 Benign prostatic hyperplasia without lower urinary tract symptoms; Z79.4 Long term (current) use of insulin; E11.649 Type 2 diabetes mellitus with hypoglycemia without coma; M06.9 Rheumatoid arthritis, unspecified; Z66 Do not resuscitate
CPT/HCPCS: 36415; 36600; 71010; 74000; 80048; 80053; 81001; 81003; 82248; 82550; 82553; 82803; 82962; 83605; 83735; 83880; 84100; 84133; 84300; 84484; 84550; 85007; 85025; 87040; 87081; 87086; 87181; 89050; 92950; 93005; 94002; 94003; 94664; J1815